=== PATIENT | male | born 1935 | race Caucasian/White ===

== ENCOUNTER → 2020-04-01 08:43 | Outpatient (CLI) | payer MEDICARE, OTHER, SELFPAY ==
--- NOTE | 2020-04-01 | DI.ECHO.S_ITS ---
[facility] +---------+ : : [address] : : : : [id number] : : : : Phone: [phone]+ Echocardiogram Report + + :Name: FLOWER THAKUR Study Date: 04/01/2020 Height: 69 in : :[facility] Weight: 222 lb : : Gender: Male BSA: 2.2 m2 : :: 1935 Age: 85 yrs BP: 155/68 mmHg: :Reason For Study: aortic insufficiency : :Ordering Physician: Dr. Cartagena : :Cristhian Performed By: Dionna Carbajal : :Referring: JUNAID MARIN : + + Interpretation Summary Left ventricular wall thickness is mild-moderately increased. Left ventricular systolic function is normal without focal wall motion abnormalities. The ejection fraction is estimated to be 55-60%. Diastolic parameters suggest probable normal left ventricular diastolic function and normal filling pressures. The right ventricle is normal in size and function. Right ventricular systolic pressure is estimated to be 28 mmHg plus the clinically estimated CVP which cannot be estimated on this exam. The left atrium is mildly dilated. The right atrium is normal in size. There is mild mitral regurgitation. There is mild aortic stenosis. The peak aortic velocity is 2.5 m/sec. There is mild aortic regurgitation. There is no other significant valvular heart disease. The ascending aorta is mild-moderately enlarged. The aortic arch is mildly enlarged. Procedure: A two-dimensional transthoracic echocardiogram with color flow and Doppler was performed. The study quality was technically good. There is no prior echocardiogram noted for this patient. The patient was in sinus bradycardia with heart rates between 47-70 bpm during the exam. The patient had frequent PVCs during the exam. Short segments of bigeminy noted throughout exam. Left Ventricle: The left ventricle is normal in size. Left ventricular wall thickness is mild-moderately increased. Proximal septal thickening is noted. Left ventricular systolic function is normal without focal wall motion abnormalities. The ejection fraction is estimated to be 55-60%. Diastolic parameters suggest probable normal left ventricular diastolic function and normal filling pressures. Right Ventricle: The right ventricle is normal in size and function. Atria: The left atrium is mildly dilated. The right atrium is normal in size. There is no Doppler evidence for an interatrial shunt. Mitral Valve: The mitral valve leaflets appear mildly thickened, but open well. There is mild mitral annular calcification. There is mild mitral regurgitation. Aortic Valve: The aortic valve is trileaflet. The aortic valve is mildly calcified. There is moderate aortic valve sclerosis. There is mild aortic stenosis. The peak aortic velocity is 2.5 m/sec. There is mild aortic regurgitation. Tricuspid Valve: The tricuspid valve is normal in structure and function. There is mild tricuspid regurgitation. Right ventricular systolic pressure is estimated to be 28 mmHg plus the clinically estimated CVP which cannot be estimated on this exam. Pulmonic Valve: The pulmonic valve is normal in structure and function. There is no pulmonic valvular regurgitation. There is no other significant valvular heart disease. Great Vessels: The aortic root is normal size. The ascending aorta is mild- moderately enlarged. The aortic arch is mildly enlarged. The inferior vena cava was not well visualized. Pericardium/ Pleura There is no pericardial effusion. There is no pleural effusion. MMode/2D Measurements & Calculations LVIDd: 4.9 cm LVOT diam: 2.4 cm LVIDs: 3.3 cm Ao root diam: 3.3 cm FS: 33.9 % asc Aorta Diam: 3.9 cm EPSS: 0.19 cm Ao Arch Diam (Prox Trans): 3.4 cm IVSd: 1.5 cm LVPWd: 1.3 cm LV lafleur. diameter/BSA (cm/m^2): 2.3 LV sys. diameter/BSA (cm/m^2): 1.5 LA A2 area: 26.9 cm2 RA long axis: 5.3 cm LA A4 area: 21.9 cm2 RA area: 18.2 cm2 LA length (vol): 5.8 cm RA vol: 53.5 ml LA vol: 85.5 ml RA : 24.8 ml/m2 LA vol index: 39.6 ml/m2 RVD1 (basal): 3.7 cm TAPSE: 2.1 cm Doppler Measurements & Calculations Ao V2 max: 244.8 cm/sec LVOT Max Alistair: 110.9 cm/sec Ao V2 mean: 166.4 cm/sec LV V1 max P.9 mmHg Ao max P.0 mmHg LV V1 VTI: 27.4 cm Ao mean P.5 mmHg ALMAZ(I,D): 2.2 cm2 Ao V2 VTI: 55.8 cm ALMAZ(V,D): 2.0 cm2 sev ratio: 0.49 ALMAZ indexed to BSA (cm^2/m^2): 1.0 MV E max alistair: 70.5 cm/sec TR max alistair: 262.7 cm/sec MV A max alistair: 58.1 cm/sec TR max P.6 mmHg MV E/A: 1.2 PA V2 max: 99.3 cm/sec Med Peak E' Alistair: 4.9 cm/sec PA V2 mean: 72.7 cm/sec E/E' med: 14.3 PA mean P.4 mmHg Lat Peak E' Alistair: 7.6 cm/sec E/E' lat: 9.3 E/e' average: 11.8 MV dec time: 0.34 sec SV(LVOT): 123.5 ml Reading Physician:05:46 PM
[2020-04-01 12:14] LABS: Basophils Absolute Auto 0 /uL (0-100); Eosinophils Absolute Auto 100 /uL (0-450); Hemoglobin 15.8 g/dL (13.5-17.5); Red Blood Cell Count 5.02 X10^6/uL (4.5-5.9)
[2020-04-01 12:18] LABS: Add Manual Diff / Slide Review NO; Basophils Percent Auto 0.4 % (0-2); Eosinophils Percent Auto 0.9 % (2-4); Hematocrit 45.1 % (41-53); Lymphocytes Absolute Auto 2400 /uL (1100-4500); Lymphocytes Percent Auto 26.5 % (25-40); Mean Corpuscular HGB Conc 34.9 % (30-36); Mean Corpuscular Hemoglobin 31.4 PG (26-34); Mean Corpuscular Volume 89.8 fL (80-100); Monocytes Absolute Auto 800 /uL (0-900); Neutrophils Absolute Auto 5700 /uL (1500-7000); Neutrophils Percent Auto 63.2 % (50-75); Platelet Count 237 X10^3/uL (150-400); Red Cell Distribution Width 14.5 % (11.6-14.8)
[2020-04-01 12:22] LABS: Alanine Aminotransferase 40 IU/L (<50); Albumin 4.6 g/dL (3.5-5.0); Albumin Globulin Ratio 1.4 (1.0-2.8); Alkaline Phosphatase 52 U/L (38-126); Aspartate Aminotransferase 37 IU/L (17-59); Bilirubin Total 0.6 mg/dL (0.2-1.3); Blood Urea Nitrogen 18 mg/dL (9-20); Carbon Dioxide 27 mmol/L (22-32); Chloride 104 mmol/L (98-107); Cholesterol 230 mg/dL (140-199); Estimated Glomerular Filt Rate > 60.0 mL/min (>60); Globulin 3.2 g/dL (1.7-4.1); Glucose 113 mg/dL (80-110); HDL Cholesterol 35 mg/dL (40-60); HEMOLYSIS < 15 (0-50); LDL Cholesterol Calculated 168 mg/dL (<100); Sodium 140 mmol/L (137-145); Total Protein 7.8 g/dL (6.3-8.2); Triglycerides 135 mg/dL (35-150)
[2020-04-01 12:45] LABS: Thyroid Stimulating Hormone 3.28 uIU/mL (0.47-4.68)
== END ==
PROVIDERS: PCP Internal Medicine; Referring Provider Internal Medicine; Visit Provider Internal Medicine
DX: I08.3 Combined rheumatic disorders of mitral, aortic and tricuspid valves (principal); I08.0 Rheumatic disorders of both mitral and aortic valves; I77.89 Other specified disorders of arteries and arterioles; I10 Essential (primary) hypertension; R53.83 Other fatigue
CPT/HCPCS: 36415; 80053; 80061; 84443; 85025; 93306

== ENCOUNTER → 2020-06-25 10:49 | Outpatient (CLI) | payer MEDICARE, OTHER, SELFPAY ==
[2020-06-25 12:16] LABS: Cholesterol 156 mg/dL (140-199); HDL Cholesterol 42 mg/dL (40-60); LDL Cholesterol Calculated 89 mg/dL (<100); Triglycerides 126 mg/dL (35-150)
[2020-06-25 12:49] LABS: Prostate Specific Antigen 1.16 ng/mL (0.10-4.00)
== END ==
PROVIDERS: PCP Internal Medicine; Referring Provider Internal Medicine; Visit Provider Internal Medicine
DX: G47.00 Insomnia, unspecified (principal); E78.2 Mixed hyperlipidemia; C61 Malignant neoplasm of prostate
CPT/HCPCS: 36415; 80061; 84153

== ENCOUNTER → 2020-07-01 08:11 | Outpatient (CLI) | payer MEDICARE, OTHER, SELFPAY ==
[2020-07-01 08:54] LABS: Appearance Urine UA CLOUDY; Bilirubin Urine UA NEGATIVE (NEGATIVE); Color Urine UA YELLOW; Glucose Urine UA NEGATIVE (Negative); Ketones Urine UA NEGATIVE (NEGATIVE); Leukocyte Esterase Urine UA 3+ (NEGATIVE); Nitrite Urine UA NEGATIVE (Negative); Occult Blood Urine UA TRACE-INTACT (Negative); Protein Urine UA NEGATIVE (Negative); Specific Gravity Urine UA <=1.005 (1.000-1.035); Urobilinogen Urine UA 0.2 E.U./dL (0.2); pH Urine UA 6.5 (4.5-8.0)
[2020-07-01 09:13] LABS: Bacteria Urine Many (>30); Culture Indicated Urine Specimen Cultured; RBC Urine 1-5/HPF (0-5/HPF); Squamous Epithelial Cell Urine 1-5 /HPF (0-5/HPF); WBC Urine >100/HPF (0-5/HPF)
== END ==
PROVIDERS: PCP Internal Medicine; Referring Provider Specialist; Visit Provider Specialist
DX: N39.0 Urinary tract infection, site not specified (principal)
CPT/HCPCS: 81003; 81015; 87077; 87086; 87186

== ENCOUNTER → 2020-07-16 10:49 | Outpatient (CLI) | payer MEDICARE, OTHER, SELFPAY ==
[2020-07-16 12:40] LABS: Appearance Urine UA CLEAR; Bilirubin Urine UA NEGATIVE (NEGATIVE); Color Urine UA YELLOW; Glucose Urine UA NEGATIVE (Negative); Ketones Urine UA NEGATIVE (NEGATIVE); Leukocyte Esterase Urine UA NEGATIVE (NEGATIVE); Nitrite Urine UA NEGATIVE (Negative); Occult Blood Urine UA NEGATIVE (Negative); Protein Urine UA NEGATIVE (Negative); Specific Gravity Urine UA <=1.005 (1.000-1.035); Urobilinogen Urine UA 0.2 E.U./dL (0.2); pH Urine UA 6.5 (4.5-8.0)
== END ==
PROVIDERS: PCP Internal Medicine; Referring Provider Internal Medicine; Visit Provider Specialist
DX: N39.0 Urinary tract infection, site not specified (principal)
CPT/HCPCS: 81003

== ENCOUNTER → 2020-08-24 10:28 | Outpatient (CLI) | payer MEDICARE, OTHER, SELFPAY ==
[2020-08-25 09:32] LABS: COVID19 Sendout Not Detected (Not Detect)
== END ==
PROVIDERS: PCP Internal Medicine; Visit Provider Physician Assistant
DX: Z11.59 Encounter for screening for other viral diseases (principal)
CPT/HCPCS: 87635

== ENCOUNTER 2020-08-27 10:19 | Day surgery (SDC) | payer MEDICARE, OTHER, SELFPAY ==
[2020-08-24 15:00] VITALS: BMI 33.0
--- NOTE | 2020-08-27 11:08 | PM.PREOP ---
Pre-operative Note COVID-19 COVID-19 status: Negative Interval Note History & Physical reviewed/Exam performed by Physician: Yes Changes to H&P: No
--- NOTE | 2020-08-27 11:09 | P.OP_ITS ---
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 His symptoms are severe and refractory to conservative measures. Until recently he was occupied taking care of his and was unable to accommodate recovery period. His passed recently and he would like to get his carpal tunnel taken care of. He has and EMG consistent with bilateral carpal tunnel syndrome right worse than left. We discussed options for treatment. He desires open release. We discussed the risks benefits and alternatives to the procedure. These include but are not limited to infection, persistent pain, wound healing problems, persistent numbness and tingling, DVT pulmonary embolism stroke paralysis cardiac and pulmonary complications. He has elected to proceed. He understands he will keep the dressing on 2-3 days after surgery and then changed to a Band-Aid. Sutures will stay in place 2 weeks. Surgeon: Lolly Hansen Click Yes if Unassisted: Yes Anesthesia Type: Sedation and Local Operative Notes Findings: Thickened transverse carpal ligament, hourglass deformity median nerve Closure Type: primary Specimen(s): none sent Estimated Blood Loss (mL): 5 Blood products transfused: none Tourniquet time (min): 29 Procedure in detail: The patient was seen and evaluated in the preoperative area. The site of surgery and informed consent were confirmed. The surgical site was marked. The patient was brought back to the operating room by the anesthesia team. Anesthetic for sedation was given. The operative right extremity was prepped on the hand table. A formal time-out procedure was performed confirming the patient's side and site of surgery and presence of informed consent. This is a clean outpatient hand surgery no preoperative antibiotics were indicated. A well-padded forearm tourniquet was placed. 10 cc of a 50 50 mixture 1% lidocaine and 0.5% Marcaine with epinephrine were infil trated. The planned skin incision was marked out along the patient's palm and this was the intersection of the longitudinal line between the ring and middle fingers and Rivera's line. This was approximately 3 cm long. Tourniquet was elevated to 150 mm of mercury. Skin incision was then made and dissection carried out with a scalpel through the skin subcutaneous tissue to the palmar fascia. The palmar fascia was then sharply divided. Bleeding points were identified and cauterized with bipolar electrocautery. Retractors were then placed to allow deep dissection and further division of the palmar fascia. Once this was completed transverse carpal ligament was visualized. This was grossly thickened. This was divided longitudinally under direct visualization. The scissors were then utilized for full proximal and distal extent release of the transverse carpal ligament. This was protected [place] within the carpal tunnel deep. The release distally was completed to the fat and proximally into the distal forearm to the antebrachial fascia was released. The carpal canal were inspected. As the transfers carpal ligament divided contents of the carpal tunnel bulged out of the carpal tunnel. The median nerve was mildly flattened with a characteristic hourglass shaped deformity. No other abnormalities were noted. Excursion of the flexor tendons was demonstrated on the passive range of motion of the fingers. No masses were noted. Edges of the carpal ligament were trimmed to make sure there was a clear space of of the contents. Tourniquet was released and hemostasis was achieved. The wounds were irrigated with normal saline. The skin incision was closed with interrupted 4 0 Monocryl and then 4 0 nylon suture. The wound was dressed with Xeroform gauze and Tegaderm dressing followed by webril and Lucas wrap. Drapes removed and patient was woken from anesthesia and taken to recovery room in good condition. There no immediate complications to this procedure. Postoperative instructions are to keep the dressing in place may remove it on day 3 and cover in shower. May cover with a Band-Aid. Limit lifting to less than 5 lb. Work on finger exercises daily for range of motion. Follow-up in 10-4 days for suture removal. May need pain medication for the 1st few days but then we did plain Tylenol and ibuprofen as soon as possible. Complications: none Post-operative Disposition: PACU Plan for aftercare: Keep dressing in place 2-3 days then may taken her with a Band-Aid. Practice daily finger range of motion
[2020-08-27 11:13] VITALS: BP 163/80; PULSE 55; RESP 14; TEMP 36.4; O2SAT 98; BMI 33.0
[2020-08-27] MEDS: LACTATED RINGERS 1,000 ML 42 ML IV (12:00)
--- NOTE | 2020-08-27 12:59 | SUR.OPER ---
Supine on padded OR bed, head on pillow, arms secured on padded arm boards at <90 degrees abduction, operative arm on hand table, legs uncrossed, safety belt at thigh, tape over blanket over lower legs.
[2020-08-27] MEDS: LIDOCAINE 1% W/EPI 20 ML INJ (13:03)
[2020-08-27] MEDS: BUPIVACAINE 0.25% W/ EPI 30 ML VIAL INJ (13:05)
[2020-08-27 13:41] VITALS: BP 109/64; PULSE 56; RESP 16; TEMP 36.6; O2SAT 93
[2020-08-27 13:46] VITALS: BP 119/63; PULSE 56; RESP 12; O2SAT 92
[2020-08-27 13:51] VITALS: BP 121/67; PULSE 57; RESP 15; O2SAT 95
[2020-08-27] MEDS: HYDROCODONE/ACET 5/325 TABLET 1 TAB PO (13:57)
[2020-08-27] MEDS: ACETAMINOPHEN 325 MG TABLET 650 MG PO (13:58)
[2020-08-27 14:01] VITALS: BP 130/70; PULSE 55; RESP 16; O2SAT 95
== END 2020-08-27 14:27 | disposition home or self-care (01) ==
PROVIDERS: PCP Internal Medicine; Referring Provider Orthopaedic Surgery Foot and Ankle Surgery; Visit Provider Orthopaedic Surgery Foot and Ankle Surgery
PROC: (CPT 64721; principal; 2020-08-27 12:00)
DX: G56.01 Carpal tunnel syndrome, right upper limb (principal); I10 Essential (primary) hypertension
CPT/HCPCS: 64721; J2405; J2704; J3010

== ENCOUNTER → 2020-09-17 08:56 | Outpatient (CLI) | payer MEDICARE, OTHER, SELFPAY ==
[2020-09-17 10:42] LABS: BUN Creatinine Ratio 16.1 (6-22); Blood Urea Nitrogen 19 mg/dL (9-20); Calcium 9.9 mg/dL (8.4-10.2); Carbon Dioxide 31 mmol/L (22-32); Chloride 106 mmol/L (98-107); Estimated Glomerular Filt Rate 58.7 mL/min (>60); Glucose 110 mg/dL (80-110); HEMOLYSIS < 15 (0-50); Potassium 4.2 mmol/L (3.4-5.1); Sodium 141 mmol/L (137-145)
== END ==
PROVIDERS: PCP Internal Medicine; Referring Provider Internal Medicine; Visit Provider Internal Medicine
DX: I10 Essential (primary) hypertension (principal)
CPT/HCPCS: 36415; 80048

== ENCOUNTER → 2022-07-18 16:49 | Outpatient (CLI) | payer MEDICARE, OTHER, SELFPAY ==
[2022-07-18 18:22] LABS: COVID19 -Nasal RAPID POSITIVE (Negative)
== END ==
PROVIDERS: PCP Internal Medicine; Visit Provider Student in an Organized Health Care Education/Training Program
DX: U07.1 COVID-19 (principal)
CPT/HCPCS: 87635

== ENCOUNTER → 2022-07-18 17:01 | Outpatient (CLI) | payer MEDICARE, OTHER, SELFPAY ==
--- NOTE | 2022-07-18 17:04 | DI.RAD.S_ITS ---
PROCEDURE: XR CHEST 2V INDICATIONS: Cough TECHNIQUE: 2 views of the chest were acquired. COMPARISON: None. FINDINGS: Surgical changes and devices: None. Lungs and pleura: Lungs are clear. No pleural effusions or pneumothorax. Mediastinum: Mediastinal contours are normal. Heart size is normal. Bones and chest wall: No suspicious bony abnormalities. Soft tissues appear unremarkable. Multilevel bridging osteophytes are seen in the thoracic spine. IMPRESSION: No acute cardiopulmonary abnormality. Dictated by: Ji Wall M.D. on 07/18/2022 at 17:41 Approved by: Ji Wall M.D. on 07/18/2022 at 17:41
== END ==
PROVIDERS: PCP Internal Medicine; Referring Provider Student in an Organized Health Care Education/Training Program; Visit Provider Student in an Organized Health Care Education/Training Program
DX: R05.9 Cough, unspecified (principal)
CPT/HCPCS: 71046; 87635